=== PATIENT | male | born 1965 | race Caucasian/White ===

== ENCOUNTER 2017-04-09 22:31 | Emergency (ER) | payer MEDICAID ==
[~2017-04-09] VITALS: Ht 165.1 cm; Wt 65.8 kg
[~2017-04-09 22:31] MED LIST: ACCUNEB SO1.25 MG/1; ALLOPURINOL 30300 M2; BENAZEPRIL 10 M10 MG; BENAZEPRIL 10 M10 MG PO; CIPROFLOXACIN500 M1 PO; COLACE100 MG; DILAUDID 2 MG TA2 MG PO; FENOFIBRATE160 MG; FLAGYL500 MG PO; GABAPENTIN 100100 MG PO; HYDROCODON-ACE1 EAC7 PO; HYDROCODONE-AP1 EAC6 PO; HYDROCODONE-APA1 TA1 PO; MEDROLDOSEPACK PO; METFORMIN HCL500 MG PO; METHADONE HCL5 MG PO; MIRALAX17 GM PO; MUCINEX600 MG; NEXIUM20 M1 PO; NEXIUM40 MG PO; ONDANSETRON HCL4 M2; PEPCID20 MG PO; PERCOCET 5-3251 EACH PO; PERCOCET PO; PHENERGAN 25 MG25 M1 PO; PREDNISONE 10 M10 MG; PROAIR HFA8.5 GM INH; RANITIDINE 150150 M1 PO; TRANSDERM-SCO1 PATC1; ULTRAM 50MG TAB50 MG PO; ZOFRAN ODT4 MG PO; ZOLOFT50 MG PO
[2017-04-09 23:04] LABS: ABSOLUTE BASOPHILS 0.1 thou/uL (0.0-0.2); ABSOLUTE EOSINOPHILS 0.2 thou/uL (0.0-0.7); ABSOLUTE MONOCYTES 0.5 thou/uL (0.0-1.2); ABSOLUTE NEUTROPHILS 3.6 thou/uL (1.6-8.1); BASOPHILS 0.9 %; EOSINOPHILS 2.6 %; HEMATOCRIT 42.1 % (42.0-52.0); HEMOGLOBIN 14.3 gm/dL (14.0-18.0); LYMPHOCYTES 31.9 %; MCH 30.2 pg (26.0-34.0); MCHC 33.9 g/dL (28.0-37.0); MCV 89.1 fL (80.0-100.0); MONOCYTES 7.4 %; MPV 8.6 fl. (7.2-11.1); NUCLEATED RBCS 0 /100WBC; PLATELET COUNT* 176 thou/uL (150-400); POLYS 57.2 %; RBC 4.72 mil/uL (4.50-6.00); WBC 6.2 thou/uL (4.0-11.0)
[2017-04-09 23:12] LABS: AMP/METHAMP Negative (Negative); BARBITURATES Negative (Negative); BENZODIAZEPINES Negative (Negative); CALCIUM 9.1 mg/dL (8.5-10.1); COCAINE Negative (Negative); CREATININE 0.7 mg/dL (0.6-1.3); METHADONE Negative (Negative); OPIATES POSITIVE (Negative); PCP Negative (Negative); POTASSIUM 4.1 mmol/L (3.5-5.1); THC Negative (Negative)
[2017-04-09 23:16] LABS: ALBUMIN 3.9 g/dL (3.4-5.0); TOTAL BILIRUBIN 0.3 mg/dL (<0.1-1.0); TOTAL PROTEIN 7.8 g/dL (6.4-8.2); URINE BILIRUBIN NEGATIVE (Negative); URINE BLOOD NEGATIVE (Negative); URINE CLARITY CLEAR; URINE COLOR YELLOW; URINE GLUCOSE-RANDOM 2+ (Negative); URINE KETONES NEGATIVE (Negative); URINE LEUKOCYTES-REFLEX NEGATIVE (Negative); URINE NITRITE-REFLEX NEGATIVE (Negative); URINE PROTEIN NEGATIVE (Negative); URINE UROBILINOGEN 0.2 E.U./dl (0.2-1.0)
[2017-04-10] MEDS ORDERED: FLAGYL500 MG PO (00:39)
[2017-04-10] MEDS ORDERED: ELIMITE60 GM TOP (00:39)
[2017-04-10] MEDS ORDERED: CIPROFLOXACIN500 M1 PO (00:39)
[2017-04-10] MEDS ORDERED: NORCO 10-325 T1 EACH PO (00:39)
[2017-04-10 00:53] VITALS: BP 157/83
== END 2017-04-10 00:54 | disposition home or self-care (01) ==
LOC: M.ERS 22:31
PROVIDERS: Emergency Medicine
DX: K52.9 Noninfective gastroenteritis and colitis, unspecified (principal); F17.210 Nicotine dependence, cigarettes, uncomplicated; I10 Essential (primary) hypertension; E11.9 Type 2 diabetes mellitus without complications; Z86.19 Personal history of other infectious and parasitic diseases; Z91.041 Radiographic dye allergy status; Z98.890 Other specified postprocedural states

== ENCOUNTER 2017-05-03 18:08 | Emergency (ER) | payer MEDICAID ==
[~2017-05-03] VITALS: Ht 165.1 cm; Wt 68.0 kg
[~2017-05-03 18:08] MED LIST changes: +ELIMITE60 GM TOP; +NORCO 10-325 T1 EACH PO
[2017-05-03] MEDS ORDERED: GLUCOPHAGE XR500 MG PO (18:25)
[2017-05-03] MEDS ORDERED: LISINOPRIL10 MG PO (18:26)
[2017-05-03 20:02] LABS: ABSOLUTE BASOPHILS 0.1 thou/uL (0.0-0.2); ABSOLUTE EOSINOPHILS 0.1 thou/uL (0.0-0.7); ABSOLUTE LYMPHOCYTES 2.1 thou/uL (0.8-5.3); ABSOLUTE MONOCYTES 0.6 thou/uL (0.0-1.2); ABSOLUTE NEUTROPHILS 3.9 thou/uL (1.6-8.1); BASOPHILS 1.3 %; EOSINOPHILS 1.5 %; HEMATOCRIT 41.3 % (42.0-52.0); HEMOGLOBIN 14.1 gm/dL (14.0-18.0); LYMPHOCYTES 31.3 %; MCHC 34.2 g/dL (28.0-37.0); MCV 87.8 fL (80.0-100.0); MONOCYTES 8.8 %; MPV 8.9 fl. (7.2-11.1); NUCLEATED RBCS 0 /100WBC; PLATELET COUNT* 180 thou/uL (150-400); POLYS 57.1 %; RDW-CV 14.2 % (10.5-14.5); WBC 6.8 thou/uL (4.0-11.0)
[2017-05-03 20:14] LABS: CALCIUM 8.7 mg/dL (8.5-10.1); CREATININE 0.9 mg/dL (0.6-1.3); POTASSIUM 4.7 mmol/L (3.5-5.1)
[2017-05-03 20:15] LABS: ALBUMIN 3.4 g/dL (3.4-5.0); TOTAL BILIRUBIN 0.3 mg/dL (<0.1-1.0); TOTAL PROTEIN 7.5 g/dL (6.4-8.2)
[2017-05-03 20:30] LABS: URINE BILIRUBIN NEGATIVE (Negative); URINE BLOOD NEGATIVE (Negative); URINE CLARITY CLEAR; URINE COLOR YELLOW; URINE GLUCOSE-RANDOM 3+ (Negative); URINE KETONES NEGATIVE (Negative); URINE LEUKOCYTES-REFLEX NEGATIVE (Negative); URINE NITRITE-REFLEX NEGATIVE (Negative); URINE PROTEIN NEGATIVE (Negative); URINE UROBILINOGEN 0.2 E.U./dl (0.2-1.0)
[2017-05-03] MEDS ORDERED: METFORMIN HCL500 MG PO (21:03)
[2017-05-03 21:18] VITALS: BP 142/91
== END 2017-05-03 21:18 | disposition home or self-care (01) ==
LOC: M.ERS 18:08
PROVIDERS: Physician Assistant
DX: R10.31 Right lower quadrant pain (principal); R10.32 Left lower quadrant pain; E11.65 Type 2 diabetes mellitus with hyperglycemia; I10 Essential (primary) hypertension; F17.210 Nicotine dependence, cigarettes, uncomplicated; Z90.49 Acquired absence of other specified parts of digestive tract; Z91.041 Radiographic dye allergy status

== ENCOUNTER 2017-05-25 02:35 | Emergency (ER) | payer MEDICAID ==
[~2017-05-25] VITALS: Ht 165.1 cm; Wt 68.0 kg
[~2017-05-25 02:35] MED LIST changes: +GLUCOPHAGE XR500 MG PO; +LISINOPRIL10 MG PO
[2017-05-25 03:30] VITALS: BP 172/93
== END 2017-05-25 03:47 | disposition left against medical advice (07) ==
LOC: M.ERS 02:35
DX: R10.9 Unspecified abdominal pain (principal); I10 Essential (primary) hypertension; E11.9 Type 2 diabetes mellitus without complications; F17.210 Nicotine dependence, cigarettes, uncomplicated; F10.21 Alcohol dependence, in remission; Z91.041 Radiographic dye allergy status; Z98.890 Other specified postprocedural states

== ENCOUNTER 2020-07-05 17:06 | Emergency (ER) | payer MEDICAID ==
[~2020-07-05] VITALS: Ht 165.1 cm; Wt 79.8 kg
--- NOTE | ~2020-07-05 | EMS ---
[address] [address] EMS Patient Care Report Name: LASHON SEO [id number] Admission: 07/05/20 Attend Phys: Discharge: 07/05/20 Date of : 63 Report #: [id number] THIS REPORT FOR: //name// Report Transmitted: 07/06/2020 09:44 EMS Care Summary [facility] Incident [id number] @ 07/05/2020 16:06 Incident Location [address] [place] [address] Patient LASHON SEO Male, 54 Years 1965 Patient Address [address] [place] [address] Patient History Cancer, Unspecified,Chronic Obstructive Pulmonary Disease (COPD),Diabetes,Hypertension (HTN),Hepatitis C (Without Hepatic Coma), Patient Allergies Dye allergy, Patient Medications Lisinopril, Metformin, Gabapentin, Albuterol, Chief Complaint "I feel very dizzy." Disposition Transported No Lights/[place] Dispatch Reason Sick Person Transported To [facility] Narrative Dispatch: Med 1 response requested to [facility] for a male with diabetic issues. Med 1 copied the call and began our response to the scene. We arrived on scene without incident. [address] [address] EMS Patient Care Report Name: LASHON SEO Room: [facility]#: [id number] Admission: 07/05/20 Attend Phys: Discharge: 07/05/20 Date of : 63 Report #: [id number] Chief complaint: Patient found sitting up right on the grass. Alert with GCS of 15. Patient stated he's been having blood sugar issues. History of present illness: Patient began having dizziness the day prior. Patient has a history of diabetes but hasn't been taking his meds for a month. Patient has not eaten or drank and fluid for the past 24 hours. He denied any shortness of air or pain. He advised that he feels light headed all the time. He typically does not go to the ER or his Dr for evaluation. Assessment: Alert with a GCS of 15. Airway open and patent. Clear lung sounds, breathing regular and non labored. Able to speak in full sentences without difficulty. Skin noted to be pink, warm and dry. Pulse present and regular felt at the radial side. No outward trauma noted. Secondary assessment as noted in tab Reason for transport: Patient requested to go to the ER to be assessed for dizziness. Treatment: ALS assessment, vitals, ECG showing sinus rhythm, IV access with fluid given. Summary: Patient was assisted to the cot where he had a seat. He was secured and taken to the ambulance and placed inside. Vitals were monitored, ECG monitored. IV access obtained and fluid given. We began our transport to [place] for further evaluation. After patient was given a fluid bolus we reassessed his blood sugar and it was still elevated. He denied any change in complaint. Radio report was called in to the ER via med radio. Upon arrival to the ER patient was taken inside and to ER 4 where he was moved. Report was given to the ER DR and care transferred. Med 1 cleared to return to service. Initial Vitals @16:42P: 108,R: 18,BP: 158/90,Pain: 0/10,GCS: 15,Glucose: 455,SpO2: 97,Revised Trauma: 12, @16:19P: 106,R: 18,BP: 164/90,Pain: 0/10,GCS: 15,Glucose: 453,SpO2: 99,Revised Trauma: 12, @16:52P: 105,R: 18,BP: 148/76,Pain: 0/10,GCS: 15,SpO2: 96,Revised Trauma: 12,[place] Suspected: false @16:37P: 114,R: 16,BP: 148/90,Pain: 0/10,GCS: 15,SpO2: 98,Revised Trauma: 12, @16:32P: 109,R: 22,BP: 173/110,Pain: 0/10,GCS: 15,SpO2: 99,Revised Trauma: 12,[place] Suspected: false Assessments @16:41MENTAL:Person Oriented,Time Oriented,Place Oriented,Event Oriented,SKIN:HEENT:[place] [id number] EMS Patient Care Report Name: RAYRAYLASHON Calixto [id number] Admission: 07/05/20 Attend Phys: Discharge: 07/05/20 Date of : 63 Report #: [id number] SOUNDS:ABDOMEN:PELVIS//GI:EXTREMITIES:PULSE:NEURO:@16:55MENTAL:Place Oriented,Event Oriented,Time Oriented,Person Oriented,SKIN:HEENT:LUNG SOUNDS:ABDOMEN:PELVIS//GI:EXTREMITIES:PULSE:NEURO: Impression Diabetic Hyperglycemia Procedures @16:19ALS AssessmentResponse: UnchangedSucceeded@16:38Lactated Ringers 300cc (20 ga) Site: Antecubital-LeftResponse: UnchangedSucceeded@16:3212-Lead ECGResponse: UnchangedSucceeded Timeline 16:06,Call Received 16:06,Dispatched 16:07,En Route 16:17,On Scene 16:18,At Patient 16:19,ALS Assessment,Response: UnchangedSucceeded, 16:19,BP: 164/90 M,PULSE: 106,RR: 18 R,SPO2: 99 Ox,ETCO2: ,B,PAIN: 0,GCS: 15, 16:32,12-Lead ECG,Response: UnchangedSucceeded, 16:32,BP: 173/110 M,PULSE: 109,RR: 22 R,SPO2: 99 Ox,ETCO2: ,BG: ,PAIN: 0,GCS: 15, 16:33,Depart Scene 16:37,BP: 148/90 M,PULSE: 114,RR: 16 R,SPO2: 98 Ox,ETCO2: ,BG: ,PAIN: 0,GCS: 15, 16:38,Lactated Ringers 300cc 20 ga Site: Antecubital-Left,Response: UnchangedSucceeded, 16:42,BP: 158/90 M,PULSE: 108,RR: 18 R,SPO2: 97 Ox,ETCO2: ,B,PAIN: 0,GCS: 15, 16:52,BP: 148/76 M,PULSE: 105,RR: 18 R,SPO2: 96 Ox,ETCO2: ,BG: ,PAIN: 0,GCS: 15, 17:04,At Destination 17:50,Call Closed Disclaimer v1.1 Copyright 2020 [employer] This EMS Care Summary contains data elements from the applicable legal record (which may be displayed differently). It is designed to provide pertinent information for the following purposes: continuity of care, clinical quality, and state data reporting. The complete legal record is available to ED staff and administrators of the receiving hospital in [facility]'s Patient Tracker. All data is provided "as is."
[2020-07-05] MEDS ORDERED: METFORMIN HCL500 M3 PO (17:13)
[2020-07-05] MEDS ORDERED: NEURONTIN100 MG PO (17:13)
[2020-07-05] MEDS ORDERED: LISINOPRIL10 MG PO (17:13)
[2020-07-05 17:27] LABS: ABSOLUTE BASOPHILS 0.1 thou/uL (0.0-0.2); ABSOLUTE EOSINOPHILS 0.2 thou/uL (0.0-0.7); ABSOLUTE LYMPHOCYTES 2.8 thou/uL (0.8-5.3); ABSOLUTE MONOCYTES 0.9 thou/uL (0.0-1.2); ABSOLUTE NEUTROPHILS 9.2 thou/uL (1.6-8.1); BASOPHILS 0.8 %; EOSINOPHILS 1.2 %; HEMATOCRIT 47.8 % (42.0-52.0); HEMOGLOBIN 15.9 gm/dL (14.0-18.0); LYMPHOCYTES 21.5 %; MCH 29.3 pg (26.0-34.0); MCHC 33.2 g/dL (28.0-37.0); MCV 88.4 fL (80.0-100.0); MPV 8.7 fl. (7.2-11.1); NUCLEATED RBCS 0 /100WBC; PLATELET COUNT* 176 thou/uL (150-400); POLYS 69.5 %; RBC 5.41 mil/uL (4.50-6.00); WBC 13.2 thou/uL (4.0-11.0)
[2020-07-05 17:33] LABS: URINE BILIRUBIN NEGATIVE (Negative); URINE BLOOD NEGATIVE (Negative); URINE CLARITY CLEAR; URINE COLOR YELLOW; URINE GLUCOSE-RANDOM 3+ (Negative); URINE KETONES NEGATIVE (Negative); URINE LEUKOCYTES-REFLEX NEGATIVE (Negative); URINE NITRITE-REFLEX NEGATIVE (Negative); URINE PROTEIN NEGATIVE (Negative); URINE SPECIFIC GRAVITY <= 1.005 (1.005-1.030); URINE UROBILINOGEN 0.2 E.U./dl (0.2-1.0)
[2020-07-05 17:38] LABS: APTT 24.8 Seconds (25.0-31.3)
[2020-07-05 18:02] LABS: CALCIUM 9.4 mg/dL (8.5-10.1); CREATININE 0.9 mg/dL (0.6-1.3); POTASSIUM 4.7 mmol/L (3.5-5.1)
[2020-07-05 18:10] LABS: ALBUMIN 3.5 g/dL (3.4-5.0); TOTAL BILIRUBIN 0.4 mg/dL (<0.1-1.0); TOTAL PROTEIN 7.2 g/dL (6.4-8.2)
[2020-07-05] MEDS ORDERED: HYDROCODON-ACE1 EAC7 PO (18:17)
[2020-07-05] MEDS ORDERED: AMOXICILLIN 50500 MG PO (18:17)
[2020-07-05 18:56] VITALS: BP 174/102
--- NOTE | 2020-07-06 09:45 | EKG ---
[place] [address] ELECTROCARDIOGRAM REPORT Name: RAYRAYLASHON Calixto Room: [facility]#: [id number] Admission: 07/05/20 Attend Phys: Discharge: 07/05/20 Date of : 63 Date of Service: 07/05/20 1724 Report #: [id number] THIS REPORT FOR: //name// [facility] ED Test Date: 2020-07-05 Test Time: 17:24:37 Pat Name: LASHON SEO Department: Room: Gender: Le[employer] Coverer: [facility] : 1965 Requested By: Ruddy Kemp Order Number: [id number] MD: Kalbe García Measurements Intervals Dickinson Rate: 104 P: 34 DC: 129 QRS: -19 QRSD: 84 T: 9 QT: 333 QTc: 438 Interpretive Statements Sinus tachycardia Borderline left axis deviation Baseline wander in lead(s) V1,V2,V3,V4,V5,V6 Compared to ECG 01/21/2017 14:22:10 Sinus rhythm no longer present Electronically Signed On 07-06-2020 9:45:33 CDT by Kaleb García [email or web address] <ELECTRONICALLY SIGNED> By: Kaleb García MD, [facility] 07/06/20 0945 1724 1724 Kaleb García MD, [facility] /EPI
== END 2020-07-05 18:57 | disposition home or self-care (01) ==
LOC: M.ERS 17:06
PROVIDERS: Family Medicine
DX: R42 Dizziness and giddiness (principal); K04.7 Periapical abscess without sinus; E11.65 Type 2 diabetes mellitus with hyperglycemia; I10 Essential (primary) hypertension; F17.210 Nicotine dependence, cigarettes, uncomplicated; Z90.49 Acquired absence of other specified parts of digestive tract; Z79.899 Other long term (current) drug therapy; Z91.041 Radiographic dye allergy status